=== PATIENT | female | born 1970 | race Caucasian/White ===

== ENCOUNTER 2023-05-25 14:32 | Outpatient (REF) | payer BC, SELFPAY | END 2023-05-25 14:33 | disposition home or self-care (01) | LOC: NFLDREF 14:32 | PROVIDERS: Visit Provider Physician Assistant Medical | DX: R10.9 Unspecified abdominal pain (principal) | CPT/HCPCS: 87086 ==

== ENCOUNTER 2023-07-24 11:42 | Outpatient (CLI) | payer BC, SELFPAY | END 2023-07-24 11:43 | disposition home or self-care (01) | LOC: LKVREF 11:42 | PROVIDERS: Visit Provider Physician Assistant Medical | DX: R73.9 Hyperglycemia, unspecified (principal) | CPT/HCPCS: 82947 ==

== ENCOUNTER 2024-01-29 08:53 | Outpatient (CLI) | payer BC, SELFPAY ==
--- NOTE | 2024-01-29 09:15 | CRLHL7_ITS ---
For Patients: As a result of the Century Cures Act, medical imaging exams and procedure reports are released immediately into your electronic medical record. You may view this report before your referring provider. If you have questions, please contact your health care provider. INDICATION: Dizziness and giddiness. TECHNIQUE: Brain and temporal bone MRI without and with contrast. 15 cc Dotarem gadolinium based contrast administered. COMPARISON : None. FINDINGS: The membranous labyrinths are normal in appearance, with no signal abnormality or malformation. No mass or pathologic enhancement within the internal auditory canals or the cerebellopontine angle cisterns. The cisternal and canalicular segments of the 7th/8th cranial nerve complexes are normal in appearance. The other imaged cranial nerve segments are normal in appearance. Brainstem and cerebellum are normal. T1 hyperintense foci within the superior temporal bones which exhibit fat suppression. This could reflect focal marrow deposition. No evidence of acute ischemia. No evidence of acute or chronic intracranial blood products. No mass or pathologic intracranial enhancement. Scattered small foci of FLAIR hyperintensity within the supratentorial white matter, typical for chronic microvascular ischemic change. No hydrocephalus or extra-axial collections. The pituitary gland, parasellar structures and optic chiasm are normal. All the major intracranial vascular structures demonstrate normal flow-related signal. The orbital contents are normal. No calvarial or skull base marrow replacing process. No obstructive sinus disease. No extracranial soft tissue findings. IMPRESSION: 1. Normal appearance of the internal auditory pathways on high resolution imaging of the temporal bones. No mass or pathologic enhancement within the internal auditory canals or CPA cisterns. Normal appearance of the 7th/8th cranial nerves. 2. No acute ischemia. No mass or pathologic intracranial enhancement elsewhere within the brain. 3. Minimal chronic microvascular ischemic changes. Dictated by Beau Sagastume MD @ 01/30/2024 11:34:00 AM (Electronically Signed)
== END 2024-01-29 08:54 | disposition home or self-care (01) ==
LOC: MRI 08:54
PROVIDERS: PCP Physician Assistant Medical; Visit Provider Otolaryngology
DX: R42 Dizziness and giddiness (principal); I67.82 Cerebral ischemia
CPT/HCPCS: 70553; A9575

== ENCOUNTER 2024-05-12 13:39 | Outpatient (CLI) | payer BC, SELFPAY | END 2024-05-12 13:40 | disposition home or self-care (01) | PROVIDERS: PCP Physician Assistant Medical; Visit Provider Physician Assistant Medical | DX: R68.82 Decreased libido (principal); R41.89 Other symptoms and signs involving cognitive functions and awareness | CPT/HCPCS: 82306; 82607; 82728; 84443 ==

== ENCOUNTER 2024-10-24 10:57 | Outpatient (CLI) | payer BC, SELFPAY ==
--- NOTE | 2024-10-24 11:15 | CRLHL7_ITS ---
For Patients: As a result of the Century Cures Act, medical imaging exams and procedure reports are released immediately into your electronic medical record. You may view this report before your referring provider. If you have questions, please contact your health care provider. CLINICAL HISTORY: Pelvic cramping on the left side proceeding vaginal estrogen use for 8 weeks TECHNIQUE: Transabdominal and transvaginal pelvic ultrasound. Transvaginal images of the pelvis were obtained for better visualization of the ovaries. Grayscale , color and spectral Doppler images were submitted. COMPARISON: 10/20/2016 pelvic ultrasound FINDINGS: Uterus: 6.7 x 3.1 x 3.9 cm. Normal appearance. Endometrium: 5 mm Normal appearance. Right ovary: 2.3 x 1.1 x 2.2 cm Normal appearance. Normal color and spectral Doppler flow. Left ovary: Surgically absent No adnexal mass. No free fluid. IMPRESSION: Prior left oophorectomy. Otherwise normal. Dictated by Triston Titus MD @ 10/26/2024 12:05:56 PM (Electronically Signed)
== END 2024-10-24 10:58 | disposition home or self-care (01) ==
LOC: US 10:58
PROVIDERS: PCP Physician Assistant Medical; Visit Provider Physician Assistant Medical
DX: R10.2 Pelvic and perineal pain (principal)
CPT/HCPCS: 76830; 76856; 93976